=== PATIENT | female | born 1990 | race Hispanic/Latino ===

== ENCOUNTER 2017-08-26 14:21 | Emergency (ER) | payer OTHER ==
[2017-08-26 15:19] LABS: Bilirubin Negative (Negative); Blood, Urine Moderate (Negative); Clarity CLEAR (Clear); Glucose, Urine (Dipstick) Negative (Negative); Leukocyte Negative (Negative); Nitrite Negative (Negative); Protein, Urine (Dipstick) Trace mg/dL (Neg-Trace); Specific Gravity, Urine 1.024 (1.002-1.036)
[2017-08-26 15:21] LABS: Bacteria/HPF None Seen HPF (None Seen); Hyaline Casts/LPF 4-6 HYALINE CAST LPF (0-3 Hyaline); Pathc Cast-AUWi Flag 1.21 (0-2.49); WBC/HPF 0-3 HPF (0-3)
[2017-08-26 15:56] LABS: #Eosinphils 0.1 thou/uL (0.0-0.7); #Monocytes 0.4 thou/uL (0.11-0.59); #Neutrophils 6.2 thou/uL (1.40-6.50); %Basophils 0.4 % (0.0-1.0); %Eosinophils 1.3 % (0.0-10.0); %Lymphocytes 22.5 % (21.0-51.0); %Monocytes 4.3 % (0.0-10.0); %Neutrophils 71.5 % (42.0-75.0); Mean Corpuscular HGB CONC 32.7 g/dL (32.0-36.0); Mean Corpuscular Hemoglobin 30.5 pg (27.0-31.0); Mean Corpuscular Volume 93.4 fl (81.0-99.0); Mean Platelet Volume 7.8 fL (7.4-10.4); Platelet Count 361 thou/uL (130-400); RBC Distribution Width 11.4 % (11.5-14.5); Red Blood Cell (RBC) Count 4.59 mill/uL (4.20-5.40); White Blood Cell (WBC) Count 8.7 thou/uL (4.8-10.8)
[2017-08-26 16:21] LABS: ALT (SGPT) 15 U/L (8-55); AST (SGOT) 17 U/L (5-34); Albumin 4.6 g/dL (3.5-5.0); Alkaline Phosphatase 96 U/L (40-150); Anion Gap 13 mmol/L (10-20); BUN (Urea Nitrogen) 9 mg/dL (7.0-18.7); Bilirubin, Total 0.4 mg/dL (0.2-1.2); Calc. Creatinine Clearance 0 mL/min (70-130); Calcium 10.2 mg/dL (7.8-10.44); Carbon Dioxide 25 mmol/L (22-29); Chloride 105 mmol/L (98-107); Estimated GFR-MDRD Greater than 90; Globulin 3.1 g/dL (2.4-3.5); Glucose 82 mg/dL (70-105); Lipase 7 U/L (8-78); Potassium 3.7 mmol/L (3.5-5.1); Protein, Total 7.7 g/dL (6.0-8.3); Sodium 139 mmol/L (136-145)
[2017-08-26] MEDS ORDERED: Dexamethasone 4 MG TAB ONE (17:56)
== END 2017-08-26 18:03 | disposition home or self-care (01) ==
LOC: ERS 14:21
DX: R10.9 Unspecified abdominal pain (principal); R07.89 Other chest pain; I10 Essential (primary) hypertension; Z79.899 Other long term (current) drug therapy
CPT/HCPCS: 36415; 80053; 81003; 81015; 83690; 85025; 99284; J8540

== ENCOUNTER 2017-09-25 17:38 | Emergency (ER) | payer OTHER | END 2017-09-25 17:50 | disposition left against medical advice (07) | LOC: ERS 17:38 | DX: Z53.21 Procedure and treatment not carried out due to patient leaving prior to being seen by health care provider (principal) ==

== ENCOUNTER 2018-01-13 16:18 | Outpatient (CLI) | payer OTHER ==
[2018-01-13 17:20] LABS: #Eosinphils 0.1 thou/uL (0.0-0.7); #Lymphocytes 2.8 thou/uL (1.20-3.40); #Monocytes 0.6 thou/uL (0.11-0.59); #Neutrophils 5.7 thou/uL (1.40-6.50); %Basophils 0.4 % (0.0-1.0); %Eosinophils 1.2 % (0.0-10.0); %Lymphocytes 30.3 % (21.0-51.0); %Monocytes 6.5 % (0.0-10.0); %Neutrophils 61.6 % (42.0-75.0); Hemoglobin 12.3 g/dL (12.0-16.0); Mean Corpuscular HGB CONC 33.5 g/dL (32.0-36.0); Mean Corpuscular Volume 89.5 fl (81.0-99.0); Mean Platelet Volume 7.5 fL (7.4-10.4); Platelet Count 358 thou/uL (130-400); RBC Distribution Width 11.4 % (11.5-14.5); Red Blood Cell (RBC) Count 4.09 mill/uL (4.20-5.40); White Blood Cell (WBC) Count 9.2 thou/uL (4.8-10.8)
[2018-01-13 17:36] LABS: BHCG - Serum Negative (NEGATIVE); Pregs Control Background? CLEAR/WHITE (CLR/WHITE); Pregs Control Bar Appear? YES (CONTROL BAR)
[2018-01-13 17:43] LABS: Anion Gap 8 mmol/L (10-20); BUN (Urea Nitrogen) 9 mg/dL (7.0-18.7); Calc. Creatinine Clearance 0 mL/min (70-130); Calcium 9.2 mg/dL (7.8-10.44); Carbon Dioxide 26 mmol/L (22-29); Chloride 103 mmol/L (98-107); Estimated GFR-MDRD Greater than 90; Glucose 103 mg/dL (70-105); Potassium 3.4 mmol/L (3.5-5.1); Sodium 134 mmol/L (136-145)
--- NOTE | 2018-01-14 23:48 | EKG ---
Test Reason : Blood Pressure : / mmHG Vent. Rate : 074 BPM Atrial Rate : 074 BPM P-R Int : 148 ms QRS Dur : 078 ms QT Int : 376 ms P-R-T Axes : 037 014 007 degrees QTc Int : 417 ms Normal sinus rhythm Normal ECG When compared with ECG of 13-OCT-2015 11:56, No significant change was found Confirmed by SHELTON RIVERS, SAmy ([id number]) on 01/14/2018 11:47:49 PM Referred By: ANGELA Confirmed By:DR. Salome PEOPLES MD
== END 2018-01-13 16:19 | disposition home or self-care (01) ==
LOC: LABBT 16:18
PROVIDERS: ATTEND Specialist
DX: Z01.812 Encounter for preprocedural laboratory examination (principal); D49.2 Neoplasm of unspecified behavior of bone, soft tissue, and skin
CPT/HCPCS: 80048; 84703; 85025; 93005; 93010

== ENCOUNTER 2018-01-16 06:03 | Day surgery (SDC) | payer OTHER ==
[2018-01-13 16:39] VITALS: BMI 31.1
[2018-01-16] MEDS ORDERED: Ketorolac Tromethamine 30 MG/ML VIAL ONE ×2 (06:17→12:55)
[2018-01-16] MEDS ORDERED: CEFAZOLIN/Water 2 GM/20 ML SYRINGE ONE (06:17)
[2018-01-16] MEDS ORDERED: Sodium Bicarb 50 MEQ/50 ML Abboject 8.4% SYRINGE ONE (07:00)
[2018-01-16] MEDS ORDERED: Bupivacaine/Epinephrine 0.25% 30 ML VIAL ONE (07:00)
[2018-01-16] MEDS ORDERED: Sodium Bicarbonate 2.5 MEQ/5 ML VIAL ONE (07:02)
[2018-01-16] MEDS ORDERED: Fentanyl 100 MCG/2 ML VIAL ONE (07:09)
[2018-01-16] MEDS ORDERED: Famotidine/PF 20 mg/2ml Vial ONE (07:09)
[2018-01-16] MEDS ORDERED: Glycopyrrolate 0.2 MG/ML 5 ML SYRINGE ONE (12:55)
[2018-01-16] MEDS ORDERED: Ondansetron HCl/PF 4 MG/2 ML Vial ONE (12:55)
[2018-01-16] MEDS ORDERED: PROPOFOL 200 MG/20 ML VIAL ONE (12:55)
[2018-01-16] MEDS ORDERED: Dexamethasone 20 MG/5 ML VIAL ONE (12:55)
[2018-01-16] MEDS ORDERED: Lidocaine 1% PF 5 ML VIAL ONE (12:55)
--- NOTE | 2018-01-16 13:15 | OP ---
DATE OF PROCEDURE: 01/16/2018 PREOPERATIVE DIAGNOSIS: A 6 cm left lower back soft tissue tumor. POSTOPERATIVE DIAGNOSIS: A 6 cm left lower back soft tissue tumor. OPERATION PERFORMED: Excision of 6 cm left lower back lipoma with layered closure. SURGEON: Toni Hernandez M.D. ANESTHESIA: General endotracheal. INDICATIONS: The patient is a 27-year-old female. She presents with a painful soft tissue mass in her left lower back. This is easily palpable. I recommended excision. DESCRIPTION OF OPERATION: Informed consent was obtained. The patient taken to the operating room wh ere general endotracheal anesthesia obtained with the patient in supine position. She was then wendy d over into a prone jackknife position and the bed was flexed. The left lower back was prepped with ChloraPrep and draped in sterile fashion. Local anesthetic was infiltrated using 0.25% Marcaine with epinephrine. Transverse 6 cm incision was created and dissection was carried through skin and subcu taneous tissue. In the depths of the fatty layer of the lower back and the counter obvious lipoma. This is carefully dissected circumferentially, taking great care to make sure that the entire lipoma was removed. It was divided from its deep connections with electrocautery and the specimen was passe d off the field. Meticulous hemostasis was ensured with electrocautery. Additional local anesthetic was infiltrated. The wound was closed in layers with 3-0 Vicryl followed by 3-0 Monocryl suture. T he skin edges approximated with 4-0 Monocryl subcuticular suture and Dermabond was placed externally. There were no complications. Patient tolerated the procedure well and was taken to recovery room i n stable condition.
== END 2018-01-16 11:37 | disposition home or self-care (01) ==
LOC: SDC 06:03
PROVIDERS: ATTEND Specialist
PROC: 0JB70ZZ Excision of Back Subcutaneous Tissue and Fascia, Open Approach (ICD-10-PCS; principal; 2018-01-16)
DX: D17.1 Benign lipomatous neoplasm of skin and subcutaneous tissue of trunk (principal); I10 Essential (primary) hypertension; F41.9 Anxiety disorder, unspecified; Z79.899 Other long term (current) drug therapy; Z88.0 Allergy status to penicillin
CPT/HCPCS: 88304; J0131; J1885; J3010; S0028

== ENCOUNTER 2018-08-28 15:29 | Outpatient (CLI) | payer BC ==
--- NOTE | 2018-08-28 17:17 | ULT ---
THYROID SONOGRAM: 08/28/18 HISTORY: Thyroid nodule. FINDINGS: Right thyroid lobe is 5.3 cm length with a homogeneous echotexture. Isthmus is 0.2 cm. Left thyroid lobe is 4.5 cm length with homogenous echotexture and no focal mass. Lateral to the lef t thyroid lobe, a lymph node with a normal fatty hilum measures up to 1.2 cm length x 0.4 cm diameter . IMPRESSION: Normal sonographic appearance of the thyroid gland. Small normal appearing lymph node just lateral to the left thyroid lobe. POS: [facility]
== END 2018-08-28 15:30 | disposition home or self-care (01) ==
LOC: BICULT 15:29
PROVIDERS: ATTEND Otolaryngology Otolaryngic Allergy
DX: E04.1 Nontoxic single thyroid nodule (principal)
CPT/HCPCS: 76536

== ENCOUNTER 2019-03-24 10:51 | Outpatient (CLI) | payer BC ==
--- NOTE | 2019-03-24 11:23 | ULT ---
US Thyroid STANDARD History: Thyroid nodules Comparison: Thyroid ultrasound August 28, 2018 Findings: Normal echotexture and vascularity of the thyroid. Similar appearance of the superficial ce rvical lymph node lying on top the sternocleidomastoid muscle. No abnormal thyroid nodule. No mass. Impression: Normal examination of the thyroid.
== END 2019-03-24 10:52 | disposition home or self-care (01) ==
LOC: BICULT 10:51
PROVIDERS: ATTEND Otolaryngology Otolaryngic Allergy
DX: E04.1 Nontoxic single thyroid nodule (principal)
CPT/HCPCS: 76536

== ENCOUNTER 2019-05-06 12:00 | Emergency (ER) | payer BC ==
--- NOTE | 2019-05-06 13:13 | RAD ---
CHEST TWO VIEWS 05/06/19 HISTORY: Chest pain. COMPARISON: 10/13/15 FINDINGS: Normal cardiac silhouette. Pulmonary vessels and hilum are normal. No masses or consolidation. No pneumothorax or osseous abnormalities. IMPRESSION: No acute cardiopulmonary process. POS: [facility]
[2019-05-06] MEDS ORDERED: Ketorolac Tromethamine 60 MG/2 ML VIAL ONE (14:08)
[2019-05-06 14:21] LABS: #Basophils 0.1 thou/uL (0.0-0.2); #Eosinphils 0.1 thou/uL (0.0-0.7); #Lymphocytes 2.3 thou/uL (1.20-3.40); #Monocytes 0.6 thou/uL (0.11-0.59); #Neutrophils 7.6 thou/uL (1.40-6.50); %Basophils 0.7 % (0.0-1.0); %Eosinophils 0.9 % (0.0-10.0); %Lymphocytes 21.4 % (21.0-51.0); %Monocytes 5.9 % (0.0-10.0); %Neutrophils 71.1 % (42.0-75.0); Hemoglobin 13.1 g/dL (12.0-16.0); Mean Corpuscular HGB CONC 32.9 g/dL (32.0-36.0); Mean Corpuscular Hemoglobin 29.5 pg (27.0-31.0); Mean Corpuscular Volume 89.8 fL (78.0-98.0); Mean Platelet Volume 7.5 fL (7.4-10.4); Platelet Count 379 thou/uL (130-400); RBC Distribution Width 11.4 % (11.5-14.5); Red Blood Cell (RBC) Count 4.44 mill/uL (4.20-5.40); White Blood Cell (WBC) Count 10.7 thou/uL (4.8-10.8)
[2019-05-06 14:44] LABS: ALT (SGPT) 12 U/L (8-55); AST (SGOT) 14 U/L (5-34); Albumin 4.1 g/dL (3.5-5.0); Alkaline Phosphatase 90 U/L (40-150); Anion Gap 11 mmol/L (10-20); BUN (Urea Nitrogen) 8 mg/dL (7.0-18.7); Bilirubin, Total 0.3 mg/dL (0.2-1.2); Calc. Creatinine Clearance 0 mL/min (70-130); Calcium 9.7 mg/dL (7.8-10.44); Carbon Dioxide 24 mmol/L (22-29); Chloride 104 mmol/L (98-107); Estimated GFR-MDRD Greater than 90; Globulin 3.1 g/dL (2.4-3.5); Glucose 78 mg/dL (70-105); Potassium 3.9 mmol/L (3.5-5.1); Protein, Total 7.2 g/dL (6.0-8.3); Sodium 135 mmol/L (136-145)
--- NOTE | 2019-05-09 13:27 | EKG ---
Test Reason : Blood Pressure : / mmHG Vent. Rate : 086 BPM Atrial Rate : 086 BPM P-R Int : 144 ms QRS Dur : 074 ms QT Int : 348 ms P-R-T Axes : 023 -03 022 degrees QTc Int : 416 ms Normal sinus rhythm Voltage criteria for left ventricular hypertrophy Abnormal ECG Confirmed by MU RIVERS, YAKOV Espinoza ([id number]), material expeditor RUDY LEIVA ([id number]) on 05/09/2019 1:26:48 PM Referred By: Confirmed By:YAKOV DOBBINS MD
== END 2019-05-06 15:15 | disposition home or self-care (01) ==
LOC: ERS 12:00
DX: R07.9 Chest pain, unspecified (principal); I10 Essential (primary) hypertension; Z79.899 Other long term (current) drug therapy
CPT/HCPCS: 36415; 71046; 80053; 84484; 85025; 93005; 96372; J1885